=== PATIENT | male | born 1990 | race Caucasian/White ===

== ENCOUNTER 2024-04-24 06:23 | Emergency (ER) | payer OTHER, SELFPAY ==
[2024-04-24 06:29] VITALS: BP 160/105
--- NOTE | 2024-04-24 07:40 | ED.GENMED ---
History of Present Illness
General
Chief Complaint: Withdrawal Symptoms
Source: patient
Exam Limitations: none
Time Seen by Provider: 04/24/24 06:38
Nursing documentation reviewed up to this point in time: agreed with
History of Present Illness
History of Present Illness:
Patient, currently on maintenance Suboxone therapy for the past 3 years, presents to ED requesting single dose of his Suboxone, as he has run out of his medications. Patient states that he may have misplaced or 1 month supply may have not had
adequate supply. Patient is requesting 1 treatment until he is able to follow-up with [facility] who monitors his therapy tomorrow. Denies abdominal pain. Denies nausea or vomiting. Denies chest pain. Denies fever. Denies use of any other
illicit medications.
Past History
Past History
ED Past Medical History: None and Other (kyphosis, lower back issues)
ED Past Surgical History: Other (rectal surgery)
Social History
Tobacco: Non-smoker
Alcohol: None
Drug: None
Living: with family
Review of Systems
Review of Systems
Allergies reviewed?: Yes
All Other Systems: ROS reviewed and negative except as documented in HPI and ROS
Constitutional: Reports no symptoms
Respiratory: Reports no symptoms
Cardiac: Reports no symptoms
ABD/GI: Reports no symptoms; Denies abdominal pain, nausea or vomiting
Musculoskeletal: Reports no symptoms
Skin: Reports no symptoms
Neurological: Reports no symptoms
Phy Exam
Physical Exam
Physical Exam:
Physical Exam
General: no apparent distress, not acutely ill. afebrile
Head: nc/at. eomi
Neck: supple. no meningeal signs.
Heart: s1/s2 regular rate and rhythm, no murmur. equal radial pulses.
Lungs: no acute respiratory distress. clear bilaterally
Abdomen: normal bowel sounds. not tender.
Neuro: alert and oriented. no focal neurological deficits
Skin: no rash
Psychiatric: well kept. interactive and cooperative
Extremities: no edema. no calf tenderness.
Course
Orders/Labs/Results
Orders:
Orders
04/24/24 07:39
Buprenorphine [Subutex] 16 mg SL NOW STA
Vital Signs
Initial and Last Documented VS:
Initial Vital Signs
Temp Pulse Resp BP Pulse Ox
98.1 F 79 16 160/105 99
04/24/24 06:29 04/24/24 06:29 04/24/24 06:29 04/24/24 06:29 04/24/24 06:29
Last Documented Vital Signs
Temp Pulse Resp BP Pulse Ox
98.1 F 79 18 164/110 98
04/24/24 06:29 04/24/24 08:09 04/24/24 08:09 04/24/24 08:09 04/24/24 08:09
MDM/Problems Addressed
MDM/Problems Addressed:
Patient currently without any active withdrawal symptoms, but certainly at risk due to having missed his previous 3 doses of Suboxone. As such, plan is to administer 1 dose of Subutex now and patient will follow-up with [facility] tomorrow.
Otherwise, patient is afebrile, hemodynamically stable, and appears nontoxic, at time of discharge.
*Critical Care Note
Total Time (30-74mins, 75-104mins- exclusive of procedures): Not Applicable
ED Attending Note
-
Portions of this chart may have been created with voice recognition software.� Occasional wrong word or��sound alike� substitutions may have occurred due to the inherent limitations of voice recognition software.
Discharge Plan
Departure
Patient Disposition: Home (Routine Discharge)
Date of Disposition: 04/24/24
Time of Disposition: 07:40
Patient with high blood pressure during this ER visit?: Yes
Condition: Good
Discharge Problem:
Prescription requested
Prescriptions:
No Action
naproxen 500 MG tablet
500 mg PO BID Qty: 14 0RF
Rx Instructions:
Take with food.
hydrocodone-acetaminophen [Vicodin] 1 EACH tablet
1 ea PO Q6HPRN PRN (Reason: pain) Qty: 5 0RF
prednisone 10 MG tablet
10 mg PO .TAPER Qty: 30 0RF
Rx Instructions:
Take 40mg daily x3days, 30mg daily x3days,
20mg daily x3days, 10mg daily x3days.
hydrocodone-acetaminophen 1 TABLET tablet
1 tab PO Q4HPRN PRN (Reason: severe pain) Qty: 6 0RF
ibuprofen 600 MG tablet
600 mg PO Q6HPRN PRN (Reason: pain) Qty: 20 0RF
hydrocodone-acetaminophen [Vicodin] 1 EACH tablet
1 ea PO Q6HPRN PRN (Reason: pain) Qty: 12 0RF
Referrals:
Sravan Cabral MD [Family Provider] -
Activity Restrictions/Additional Instructions:
As discussed, please follow-up with [facility] for continual evaluation and treatment.
Interventions
Interventions:
*Risk Screen - Suicide Last Done: 04/24/24 06:24
*General Assessment Last Done: 04/24/24 06:29
*Neglect/Abuse Screening Last Done: 04/24/24 06:24
ED- Fall Risk Assessment Last Done: 04/24/24 06:29
*ED COVID-19 Vaccine History Last Done: 04/24/24 06:29
*Nursing Disposition Last Done: 04/24/24 08:14
ED- Neurological Assessment Last Done: 04/24/24 08:09
ED-Psychological Assessment Last Done: 04/24/24 08:09
Discharge Date and Time
Discharge Date/Time: 04/24/24 08:14
Print Language: TONGAN
[2024-04-24] MEDS: SUBUTEX 16 MG SL (08:00)
[2024-04-24 08:09] VITALS: BP 164/110
== END 2024-04-24 08:14 | disposition home or self-care (01) ==
LOC: EMR 06:23
PROVIDERS: EMERGENCY PHYSICIAN Emergency Medicine; FAMILY PHYSICIAN Family Medicine
DX: Z76.0 Encounter for issue of repeat prescription (principal); Z91.148 Patient's other noncompliance with medication regimen for other reason; R03.0 Elevated blood-pressure reading, without diagnosis of hypertension
CPT/HCPCS: 99283

== ENCOUNTER 2024-10-29 21:20 | Emergency (ER) | payer OTHER, SELFPAY ==
[2024-10-29 21:22] VITALS: BP 165/92
[2024-10-30 01:12] VITALS: BP 139/80
[2024-10-30 02:00] VITALS: BP 142/69
--- NOTE | 2024-10-30 02:56 | ED.GENMED ---
History of Present Illness
General
Chief Complaint: Prescription Refill
Source: patient
Exam Limitations: none
Time Seen by Provider: 10/30/24 02:55
Nursing documentation reviewed up to this point in time: agreed with
History of Present Illness
History of Present Illness:
34-year-old male with a past medical history of substance abuse on Suboxone presents emergency department today with concerns of a Suboxone refill. Patient reports that the past week, he has had injury to his back and reports that he took 2 extra
Suboxone tablets to treat this pain. Patient reports that he did not use ibuprofen or any [id number] pain medications to help with this. He is currently back pain-free. Patient is concerned of going into withdrawal tomorrow as the next time
he gets a refill of his medication is Thursdayoctober 31. He currently has no withdrawal symptoms, he has no bodyaches, nausea, vomiting. He denies any fevers or chills. He denies any chest pain or shortness of breath.
Past History
Past History
ED Past Medical History: None and Other (kyphosis, lower back issues)
ED Past Surgical History: Other (rectal surgery)
Social History
Tobacco: Non-smoker
Alcohol: None
Drug: None
Living: with family
Review of Systems
Review of Systems
All Other Systems: ROS reviewed and negative except as documented in HPI and ROS
Phy Exam
Physical Exam
Physical Exam:
General: Patient is well appearing and in no acute distress; non-toxic
Skin: Warm and dry, no rashes or lesions
Head: Normocephalic, atraumatic
Eyes: Sclera non-icteric. EOMs intact.
Cardiac: Regular rate and rhythm, no murmurs
Pulm: Normal respiratory effort, no wheezes, rales, or
Musculoskeletal: No tenderness to palpation of the lumbar spine
Neuro: CN II-XII intact, no focal neurologic deficits.
Psychiatric: Appropriate mood and affect.
Course
Vital Signs
Initial and Last Documented VS:
Initial Vital Signs
Temp Pulse Resp BP Pulse Ox
97.8 F 86 16 165/92 97
10/29/24 21:22 10/29/24 21:22 10/29/24 21:22 10/29/24 21:22 10/29/24 21:22
Last Documented Vital Signs
Temp Pulse Resp BP Pulse Ox
97.8 F 92 18 142/69 97
10/29/24 21:22 10/30/24 01:12 10/30/24 01:12 10/30/24 02:00 10/30/24 01:13
MDM/Problems Addressed
Differential Diagnosis Includes:
Differentials include prescription refill request, opioid withdrawal, lumbar sprain
MDM/Problems Addressed:
34-year-old male with a past medical history of substance abuse on Suboxone presents emergency department today with concerns of a Suboxone refill. Patient reports that the past week, he has had injury to his back and reports that he took 2 extra
Suboxone tablets to treat this pain. Patient is currently back pain-free and he is currently not having any active withdrawal symptoms. He is concerned he may have withdrawal tomorrow. I did offer use of muscle relaxants, steroids, and other
medications including lidocaine patches help treat his low back pain. Patient reports that his he is pain-free currently but is just concerned about withdrawal. Considering the inappropriate use of Suboxone, and inability to see patient follow-up,
I will not refill Suboxone at this time and advised patient to wait until he gets a refill on Thursday. Patient stressed understanding. Patient stable for discharge.
Chronic conditions affecting care:
Substance use disorder
*Critical Care Note
Total Time (30-74mins, 75-104mins- exclusive of procedures): Not Applicable
ED Attending Note
-
Portions of this chart may have been created with voice recognition software.� Occasional wrong word or��sound alike� substitutions may have occurred due to the inherent limitations of voice recognition software.
Discharge Plan
Departure
Patient Disposition: Home (Routine Discharge)
Date of Disposition: 10/30/24
Time of Disposition: 03:04
Patient with high blood pressure during this ER visit?: Yes
Condition: Good
Discharge Problem:
Prescription refill
Instructions: Substance use disorder - ED discharge instructions, BLOOD PRESSURE
Prescriptions:
No Action
naproxen 500 MG tablet
500 mg PO BID Qty: 14 0RF
Rx Instructions:
Take with food.
hydrocodone-acetaminophen [Vicodin] 1 EACH tablet
1 ea PO Q6HPRN PRN (Reason: pain) Qty: 5 0RF
prednisone 10 MG tablet
10 mg PO .TAPER Qty: 30 0RF
Rx Instructions:
Take 40mg daily x3days, 30mg daily x3days,
20mg daily x3days, 10mg daily x3days.
hydrocodone-acetaminophen 1 TABLET tablet
1 tab PO Q4HPRN PRN (Reason: severe pain) Qty: 6 0RF
ibuprofen 600 MG tablet
600 mg PO Q6HPRN PRN (Reason: pain) Qty: 20 0RF
hydrocodone-acetaminophen [Vicodin] 1 EACH tablet
1 ea PO Q6HPRN PRN (Reason: pain) Qty: 12 0RF
Referrals:
Sravan Cabral MD [Family Provider] -
Activity Restrictions/Additional Instructions:
Please follow up with your prescribing provider.
Please return to the emergency department with any concerns.
Interventions
Interventions:
*Risk Screen - Suicide Last Done: 10/29/24 21:24
*General Assessment Last Done: 10/30/24 01:09
*Neglect/Abuse Screening Last Done: 10/30/24 01:09
*ED- Fall Risk Assessment Last Done: 10/30/24 01:09
*ED COVID-19 Vaccine History Last Done: 10/30/24 01:09
*Nursing Disposition Last Done: 10/30/24 03:09
Discharge Date and Time
Discharge Date/Time: 10/30/24 03:10
Print Language: IRAQI
== END 2024-10-30 03:10 | disposition home or self-care (01) ==
LOC: EMR 21:20
PROVIDERS: EMERGENCY PHYSICIAN Emergency Medicine; FAMILY PHYSICIAN Family Medicine
DX: Z76.0 Encounter for issue of repeat prescription (principal); F11.10 Opioid abuse, uncomplicated; R03.0 Elevated blood-pressure reading, without diagnosis of hypertension
CPT/HCPCS: 99281